=== PATIENT | female | born 1995 | race Two or more races ===

== ENCOUNTER 2024-07-07 13:16 | Outpatient (CLI) | payer OTHER | END 2024-07-07 13:31 | disposition home or self-care (01) | LOC: NUCLEAR 13:16 | PROVIDERS: ATTEND Obstetrics & Gynecology | DX: M79.89 Other specified soft tissue disorders (principal); I87.2 Venous insufficiency (chronic) (peripheral) ==

== ENCOUNTER 2024-07-11 07:45 | Inpatient (IN) | payer OTHER ==
[~2024-07-11] VITALS: Ht 175.3 cm; Wt 2.7 kg
[2024-07-11 09:32] LABS: HEMOGLOBIN 11.2 g/dL (12.0-15.00); MEAN CELL VOLUME 74.2 fL (80.00-100.00); MEAN CORPUSCULAR HEMOGLOBIN 24.5 pg (27.00-32.0); PLATELET COUNT 261 K/uL (150-450); RED BLOOD COUNT 4.58 M/uL (4.00-6.00); RED CELL DISTRIBUTION WIDTH 16.8 % (11.5-14.5)
[2024-07-11] MEDS ORDERED: IRON325 MG PO (09:32)
[2024-07-11] MEDS ORDERED: PRENATA CHEWAB1 EACH PO (09:32)
[2024-07-11 10:09] LABS: INR < 0.93; PARTIAL THROMBOPLASTIN TIME 28.7 SECONDS (22.0-34.0); PROTHROMBIN TIME 9.8 SECONDS (9.0-11.5)
[2024-07-11 10:36] LABS: BILIRUBIN TOTAL 0.28 mg/dL (0.3-1.2); CALCIUM 9.2 mg/dL (8.5-10.1); CREATININE SERUM 0.56 mg/dL (0.55-1.02); GFR 126.26; GLOBULINA 4.3 G/DL (2.4-3.5); POTASSIUM 4.11 mEq/L (3.5-5.1); TOTAL PROTEIN 7.3 gm/dL (6.4-8.2)
[2024-07-21 09:05] VITALS: BP 108/74
[2024-07-21] MEDS ORDERED: MORPHINE SULFATE 4 MG/ML CARTRIDGE IV PRN (13:30)
[2024-07-21] MEDS ORDERED: OXYTOCIN 1,000 ML IV SCH (13:30)
[2024-07-21] MEDS ORDERED: MORPHINE SULFATE 4 MG/ML VIAL IV ONE ×2 (14:20→14:50)
[2024-07-21] MEDS ORDERED: ERYTHROMYCIN BASE OPHT 1GM EACH TUBE OP ONE (14:30)
[2024-07-21] MEDS ORDERED: OXYTOCIN 20 UNITS/1000ML RL PIGGYBAG IV ONE (14:30)
[2024-07-21] MEDS ORDERED: CITRIC ACID/SODIUM CITRATE 30 ML BLIST.PACK PO ONE (14:30)
[2024-07-21] MEDS ORDERED: CEFAZOLIN SODIUM 1,000 MG VIAL IV ONE (14:30)
[2024-07-21] MEDS ORDERED: MEPERIDINE HCL 25 MG/ML AMPUL IV ONE (15:20)
[2024-07-21 16:00] VITALS: BP 115/67
[2024-07-21 16:34] VITALS: BP 115/67
[2024-07-22 01:00] VITALS: BP 124/82
[2024-07-22 07:33] VITALS: BP 106/73
[2024-07-22] MEDS ORDERED: IBUprofen 400 MG TABLET PO SCH (09:00)
[2024-07-22 10:23] LABS: HEMATOCRIT 35.1 % (36.0-45.00); HEMOGLOBIN 11.5 g/dL (12.0-15.00); MEAN CELL VOLUME 73.9 fL (80.00-100.00); MEAN CORPUSCULAR HEMOGLOBIN 24.3 pg (27.00-32.0); MEAN CORPUSCULAR HGB CONC 32.9 g/dl (32.0-36.0); PLATELET COUNT 287 K/uL (150-450); RED BLOOD COUNT 4.74 M/uL (4.00-6.00); RED CELL DISTRIBUTION WIDTH 17.4 % (11.5-14.5)
[2024-07-22] MEDS ORDERED: IBUprofen 400 MG TABLET PO PRN (10:30)
[2024-07-22 15:51] VITALS: BP 102/71
[2024-07-22 23:41] VITALS: BP 95/61
[2024-07-23] MEDS ORDERED: OxyCODONE HCL 5 MG TABLET (ROXICODONE) PO PRN (06:00)
[2024-07-23 08:26] VITALS: BP 102/68
[2024-07-23] MEDS ORDERED: IBUprofen 400 MG TABLET PO SCH (09:00)
== END 2024-07-23 13:39 | disposition home or self-care (01) | DRG 788 ==
LOC: OB/GYN 07-21 07:45 → O/R 07-21 08:48 → OB/GYN 07-21 08:48
PROVIDERS: Obstetrics & Gynecology; ADMIT Obstetrics & Gynecology Maternal & Fetal Medicine; ATTEND Obstetrics & Gynecology Maternal & Fetal Medicine
PROC: 4A1HXCZ Monitoring of Products of Conception, Cardiac Rate, External Approach (ICD-10-PCS; 2024-07-21)
PROC: 10D00Z1 Extraction of Products of Conception, Low, Open Approach (ICD-10-PCS; principal; 2024-07-21 09:45)
DX: O34.211 Maternal care for low transverse scar from previous cesarean delivery (principal); Z3A.37 37 weeks gestation of pregnancy; Z37.0 Single live birth; Z20.822 Contact with and (suspected) exposure to COVID-19